=== PATIENT | female | born 1965 | race Asian ===

== ENCOUNTER 2024-05-10 11:09 | Inpatient (IN) | payer MEDICARE, OTHER ==
[~2024-05-10] VITALS: Ht 160 cm; Wt 57.2 kg
[2024-05-10 11:40] LABS: *BILIRUBIN,URIN NEGATIVE (NEGATIVE); *CLARITY,URINE CLEAR (CLEAR); *COLOR,URINE YELLOW (YELLOW); *KETONES,URINE NEGATIVE (NEGATIVE); *PROTEIN,URINE 2+ (NEGATIVE); *UROBILINOGEN,URINE 0.2 E.U./dl (NORMAL); LEUKOCYTE ESTERASE ,URINE 3+ (NEGATIVE); NITRITE, URINE NEGATIVE (NEGATIVE); UGLUCOSE NEGATIVE (NEGATIVE)
[2024-05-10 11:41] LABS: *BLOOD, URINE TRACE (NEGATIVE)
[2024-05-10 11:45] LABS: BASOPHILS % (AUTO) 0.5 % (0.0-2.0); EOSINOPHILS # (AUTO) 0.1 K/uL (0.0-0.7); EOSINOPHILS % (AUTO) 1.5 % (0.0-7.0); LYMPHOCYTES # (AUTO) 1.4 K/uL (0.8-4.8); MEAN CORPUSCULAR HEMOGLOBIN 31.2 uug (24.7-32.8); MEAN CORPUSCULAR HGB CONC 33 g/dL (32.3-35.6); MEAN CORPUSCULAR VOLUME 93.6 fL (75.5-95.3); MONOCYTES # (AUTO) 0.6 K/uL (0.1-1.30); MONOCYTES % (AUTO) 7.1 % (0.0-11.0); NEUTROPHILS # (AUTO) 6.6 K/uL (1.8-8.9); NEUTROPHILS % (AUTO) 74.9 % (38.5-71.5); PLATELET COUNT (AUTO) 262 K/uL (179-408); RED BLOOD CELL COUNT(AUTO) 2.88 MIL/uL (3.63-4.92); RED CELL DISTRIBUTION WIDTH 12.5 % (12.3-17.7); WHITE BLOOD COUNT (AUTO) 8.8 K/uL (3.8-11.8)
[2024-05-10 11:50] LABS: *AMPHETAMINE, URINE NEGATIVE (NEGATIVE); *BARBITURATE, URINE NEGATIVE (NEGATIVE); *BENZODIAZEPINE, URINE NEGATIVE (NEGATIVE); *CANNABINOID, URINE NEGATIVE (NEGATIVE); *COCCAINE, URINE NEGATIVE (NEGATIVE); *OPIATE, URINE NEGATIVE (NEGATIVE); *PHENCYCLIDINE SCREEN,URINE NEGATIVE (NEGATIVE); FENTANYL, URINE NEGATIVE (NEGATIVE)
[2024-05-10 11:54] LABS: DIFFERENTIAL COMMENT 1
[2024-05-10 11:55] LABS: BACTERIA,URINE FEW /HPF (NONE SEEN); SQUAMOUS EPITHELIAL CELL,UR FEW /HPF (NONE SEEN); WBC,URINE 20-50 /HPF (0-3)
[2024-05-10 11:56] LABS: CALCIUM 11.6 mg/dL (8.5-10.1); CARBON DIOXIDE 25 mmol/L (21-32); CHLORIDE 103 mmol/L (98-107); CREATININE 4.1 mg/dL (0.6-1.3); GLUCOSE 101 mg/dL (74-106); POTASSIUM 4.5 mmol/L (3.5-5.1); SODIUM SERUM 137 mmol/L (136-145); UREA NITROGEN, BLOOD 39 mg/dL (7-18)
[2024-05-10 11:59] LABS: AMMONIA < 10 umol/L (11-32)
[2024-05-10 12:03] LABS: ETHANOL < 3 MG/DL (0-10)
[2024-05-10 12:04] LABS: ALANINE AMINOTRANSFERASE 9 U/L (14-59); ALBUMIN 3.6 g/dL (3.4-5.0); ALKALINE PHOSPHATASE 94 U/L (50-136); ASPARTATE AMINOTRANSFERASE 11 U/L (15-37); BILIRUBIN,DIRECT 0.1 mg/dL (0.0-0.2); BILIRUBIN,TOTAL 1.9 mg/dL (0.2-1.0); TOTAL PROTEIN, SERUM 7.7 g/dL (6.4-8.2)
[2024-05-10 12:07] LABS: ACETAMINOPHEN < 10.0 ug/mL (10-30)
[2024-05-10] MEDS ORDERED: ATOR10TA PO (13:42)
[2024-05-10] MEDS ORDERED: OXYB5TAB29 PO (13:42)
[2024-05-10] MEDS ORDERED: SITA50TA PO (13:42)
[2024-05-10] MEDS ORDERED: MIRT15TA3 PO (13:42)
[2024-05-10] MEDS ORDERED: VENL37.55 PO (13:42)
[2024-05-10] MEDS ORDERED: ACET-2605 PO (13:42)
[2024-05-10] MEDS ORDERED: ESCI5TAB PO (13:42)
[2024-05-10] MEDS ORDERED: ARIP10TA56 PO (13:42)
[2024-05-10] MEDS ORDERED: REMEDY ESSENTIAL ZINC PASTE 113 GM TP PRN (14:30)
[2024-05-10] MEDS ORDERED: MAGNESIUM HYDROXIDE 30 ML LIQUID UDC PO PRN (14:30)
[2024-05-10] MEDS ORDERED: HYDROCODONE/APAP 5-325MG TABLET PO PRN (14:30)
[2024-05-10] MEDS ORDERED: FERR-68 PO (15:16)
[2024-05-10] MEDS ORDERED: ALOG12.5 PO (15:16)
[2024-05-10] MEDS ORDERED: GLUC1KIT IJ (15:16)
[2024-05-10] MEDS ORDERED: OXYB5TAB16 PO (15:16)
[2024-05-10] MEDS ORDERED: THIA100T74 PO (15:16)
[2024-05-10] MEDS ORDERED: VENL37.510 PO (15:16)
[2024-05-10] MEDS ORDERED: ASCO500T85 PO (15:16)
[2024-05-10] MEDS ORDERED: MAGN400O6 PO (15:16)
[2024-05-10] MEDS ORDERED: FOLI1TAB94 PO (15:16)
[2024-05-10 15:45] VITALS: BP 134/69; TEMP 98.9; O2SAT 99
[2024-05-10] MEDS ORDERED: ARIP10TA9 PO (15:45)
[2024-05-10] MEDS: IV 1/2NS 1000 ML 1,000 ML IV PRN (16:55)
[2024-05-10] MEDS: CEFTRIAXONE 1 G in IV DEXTROSE 5% 50 ML IV SCH (16:55)
[2024-05-11 03:51] VITALS: BP 108/62; TEMP 98.4
[2024-05-11 06:17] LABS: BASOPHILS # (AUTO) 0.1 K/UL (0.0-0.2); BASOPHILS % (AUTO) 0.9 % (0.0-2.0); EOSINOPHILS # (AUTO) 0.2 K/uL (0.0-0.7); EOSINOPHILS % (AUTO) 3.6 % (0.0-7.0); HEMATOCRIT 27.7 % (31.2-41.9); HEMOGLOBIN 9.4 g/dL (10.9-14.3); LYMPHOCYTES # (AUTO) 1.2 K/uL (0.8-4.8); LYMPHOCYTES % (AUTO) 19.4 % (20.5-51.5); MEAN CORPUSCULAR HGB CONC 34 g/dL (32.3-35.6); MEAN CORPUSCULAR VOLUME 94.6 fL (75.5-95.3); MONOCYTES # (AUTO) 0.6 K/uL (0.1-1.30); MONOCYTES % (AUTO) 9.8 % (0.0-11.0); NEUTROPHILS # (AUTO) 4.2 K/uL (1.8-8.9); NEUTROPHILS % (AUTO) 66.3 % (38.5-71.5); PLATELET COUNT (AUTO) 230 K/uL (179-408); RED BLOOD CELL COUNT(AUTO) 2.93 MIL/uL (3.63-4.92); RED CELL DISTRIBUTION WIDTH 12.5 % (12.3-17.7); WHITE BLOOD COUNT (AUTO) 6.4 K/uL (3.8-11.8)
[2024-05-11 06:34] LABS: CALCIUM 11.1 mg/dL (8.5-10.1); CREATININE 3.8 mg/dL (0.6-1.3); MAGNESIUM 1.3 mg/dL (1.8-2.4); PHOSPHOROUS 3.4 mg/dL (2.5-4.9); POTASSIUM 4.7 mmol/L (3.5-5.1)
[2024-05-11 06:52] LABS: DIFFERENTIAL COMMENT 1
[2024-05-11] MEDS: PANTOPRAZOLE SODIUM 40 MG TABLET.DR PO SCH (06:59)
[2024-05-11 08:11] VITALS: BP 117/60; TEMP 97.9; O2SAT 94
[2024-05-11 11:37] LABS: THYROID STIMULATING HORMONE 0.164 mIU/mL (0.358-3.740)
[2024-05-11 11:58] VITALS: BP 119/54; TEMP 98
[2024-05-11] MEDS ORDERED: MIRT-121 PO (12:20)
[2024-05-11] MEDS ORDERED: MAGNESIUM HYDROXIDE 30 ML LIQUID UDC PO PRN (12:45)
[2024-05-11] MEDS: LINAGLIPTIN 5 MG TABLET PO SCH (15:22)
[2024-05-11] MEDS: FOLIC ACID 1 MG TABLET PO SCH (15:22)
[2024-05-11] MEDS: ESCITALOPRAM OXALATE 10 MG TABLET PO SCH (15:23)
[2024-05-11] MEDS: THIAMINE HCL 100 MG TABLET PO SCH (15:24)
[2024-05-11] MEDS: MAGNESIUM SULFATE/D5W 100 ML IV SCH (15:24)
[2024-05-11] MEDS: ASCORBIC ACID 500 MG TABLET PO SCH (15:24)
[2024-05-11 17:10] VITALS: BP 114/52; TEMP 98; O2SAT 100
[2024-05-11] MEDS: OXYBUTYNIN CHLORIDE 5 MG TABLET PO SCH (17:22)
[2024-05-11] MEDS: ACETAMINOPHEN 325 MG TABLET PO PRN (17:22)
[2024-05-11 20:00] VITALS: BP 109/64; TEMP 98.2; O2SAT 97
[2024-05-11] MEDS: ATORVASTATIN 10 MG TABLET PO SCH (20:27)
[2024-05-11] MEDS: ARIPIPRAZOLE 10 MG TABLET PO SCH (20:27)
[2024-05-11] MEDS: MIRTAZAPINE 15 MG TABLET PO SCH (20:27)
[2024-05-12 00:01] VITALS: BP 115/62; TEMP 97.6; O2SAT 97
[2024-05-12 05:45] VITALS: BP 110/51; TEMP 97.9; O2SAT 98
[2024-05-12 06:00] LABS: *BILIRUBIN,URIN NEGATIVE (NEGATIVE); *BLOOD, URINE NEGATIVE (NEGATIVE); *CLARITY,URINE CLEAR (CLEAR); *COLOR,URINE YELLOW (YELLOW); *KETONES,URINE NEGATIVE (NEGATIVE); *PROTEIN,URINE NEGATIVE (NEGATIVE); *UROBILINOGEN,URINE 0.2 E.U./dl (NORMAL); LEUKOCYTE ESTERASE ,URINE NEGATIVE (NEGATIVE); NITRITE, URINE NEGATIVE (NEGATIVE); PH,URINE 5.5 (5.0-8.0); UGLUCOSE NEGATIVE (NEGATIVE)
[2024-05-12 06:08] LABS: *URINE TOTAL PROTEIN RANDOM 16.6 mg/dL (<150/24HR)
[2024-05-12 06:33] LABS: BASOPHILS % (AUTO) 0.7 % (0.0-2.0); EOSINOPHILS # (AUTO) 0.2 K/uL (0.0-0.7); EOSINOPHILS % (AUTO) 3.5 % (0.0-7.0); HEMATOCRIT 28.5 % (31.2-41.9); HEMOGLOBIN 9.4 g/dL (10.9-14.3); LYMPHOCYTES # (AUTO) 1.5 K/uL (0.8-4.8); LYMPHOCYTES % (AUTO) 23.3 % (20.5-51.5); MEAN CORPUSCULAR HEMOGLOBIN 31.6 uug (24.7-32.8); MEAN CORPUSCULAR HGB CONC 33 g/dL (32.3-35.6); MEAN CORPUSCULAR VOLUME 95.7 fL (75.5-95.3); MONOCYTES # (AUTO) 0.5 K/uL (0.1-1.30); MONOCYTES % (AUTO) 8.2 % (0.0-11.0); NEUTROPHILS % (AUTO) 64.3 % (38.5-71.5); PLATELET COUNT (AUTO) 233 K/uL (179-408); RED BLOOD CELL COUNT(AUTO) 2.98 MIL/uL (3.63-4.92); RED CELL DISTRIBUTION WIDTH 12.6 % (12.3-17.7); WHITE BLOOD COUNT (AUTO) 6.3 K/uL (3.8-11.8)
[2024-05-12 06:53] LABS: BILIRUBIN,TOTAL 0.3 mg/dL (0.2-1.0); CALCIUM 10.5 mg/dL (8.5-10.1); CREATININE 3.7 mg/dL (0.6-1.3); MAGNESIUM 2.6 mg/dL (1.8-2.4); PHOSPHOROUS 3.4 mg/dL (2.5-4.9); POTASSIUM 4.2 mmol/L (3.5-5.1); TOTAL PROTEIN, SERUM 6.9 g/dL (6.4-8.2)
[2024-05-12 08:19] VITALS: BP 105/54; TEMP 98.7; O2SAT 97
[2024-05-12] MEDS: FERROUS SULFATE 325 MG TABEC PO SCH (08:27)
[2024-05-12] MEDS ORDERED: Medication Not On Formulary EA (Escitalopram Oxalate (Lexapro) 5 MG) PO SCH (09:00)
[2024-05-12] MEDS ORDERED: Medication Not On Formulary EA (Sitagliptin Phosphate (Januvia) 50 MG) PO SCH (09:00)
[2024-05-12] MEDS ORDERED: ALOGLIPTIN BENZOATE 6.25 MG PO SCH (09:00)
[2024-05-12 12:00] VITALS: BP 115/72; TEMP 97.7; O2SAT 97
[2024-05-12 16:39] VITALS: BP 113/59; TEMP 97.9; O2SAT 96
[2024-05-12 20:08] VITALS: BP 115/79; TEMP 98.4; O2SAT 96
[2024-05-13 05:45] VITALS: BP 127/60; TEMP 97.5; O2SAT 97
[2024-05-13 06:56] LABS: BASOPHILS % (AUTO) 0.6 % (0.0-2.0); EOSINOPHILS # (AUTO) 0.2 K/uL (0.0-0.7); EOSINOPHILS % (AUTO) 3.8 % (0.0-7.0); HEMATOCRIT 30.3 % (31.2-41.9); LYMPHOCYTES # (AUTO) 1.4 K/uL (0.8-4.8); MEAN CORPUSCULAR HEMOGLOBIN 31.2 uug (24.7-32.8); MEAN CORPUSCULAR HGB CONC 33 g/dL (32.3-35.6); MEAN CORPUSCULAR VOLUME 94.2 fL (75.5-95.3); MONOCYTES # (AUTO) 0.4 K/uL (0.1-1.30); MONOCYTES % (AUTO) 7.2 % (0.0-11.0); NEUTROPHILS # (AUTO) 3.3 K/uL (1.8-8.9); NEUTROPHILS % (AUTO) 62.4 % (38.5-71.5); PLATELET COUNT (AUTO) 229 K/uL (179-408); RED BLOOD CELL COUNT(AUTO) 3.22 MIL/uL (3.63-4.92); RED CELL DISTRIBUTION WIDTH 12.4 % (12.3-17.7); WHITE BLOOD COUNT (AUTO) 5.3 K/uL (3.8-11.8)
[2024-05-13 07:10] LABS: DIFFERENTIAL COMMENT 1
[2024-05-13 07:49] LABS: CALCIUM 10.9 mg/dL (8.5-10.1); CREATININE 3.5 mg/dL (0.6-1.3); MAGNESIUM 1.9 mg/dL (1.8-2.4); PHOSPHOROUS 4.2 mg/dL (2.5-4.9); POTASSIUM 4.1 mmol/L (3.5-5.1)
[2024-05-13 08:11] LABS: PTH, INTACT 160 pg/mL (15-65)
[2024-05-13 11:50] VITALS: BP 121/60; TEMP 98.1; O2SAT 99
[2024-05-13 15:48] VITALS: BP 127/60; TEMP 98.2; O2SAT 94
[2024-05-14] MEDS ORDERED: NEPRO (VANILLA) 237 ML CAN PO SCH (09:00)
== END 2024-05-13 16:30 | DRG 689 ==
LOC: ER 11:09 → MEDSURG3 15:13 → TELE3 17:00 → MEDSURG3 05-12 10:00
PROC: 05HC33Z Insertion of Infusion Device into Left Basilic Vein, Percutaneous Approach (ICD-10-PCS; principal; 2024-05-10)
DX: N39.0 Urinary tract infection, site not specified (principal); G92.8 Other toxic encephalopathy; N18.6 End stage renal disease; N17.9 Acute kidney failure, unspecified; E11.22 Type 2 diabetes mellitus with diabetic chronic kidney disease; Z99.2 Dependence on renal dialysis; Z79.84 Long term (current) use of oral hypoglycemic drugs; E11.42 Type 2 diabetes mellitus with diabetic polyneuropathy; E83.52 Hypercalcemia; E78.5 Hyperlipidemia, unspecified; D64.9 Anemia, unspecified; G93.9 Disorder of brain, unspecified; E86.0 Dehydration; F31.9 Bipolar disorder, unspecified; F20.9 Schizophrenia, unspecified; I45.10 Unspecified right bundle-branch block; J44.9 Chronic obstructive pulmonary disease, unspecified; N32.81 Overactive bladder; Z91.158 Patient's noncompliance with renal dialysis for other reason; Z88.0 Allergy status to penicillin; I70.0 Atherosclerosis of aorta; I51.7 Cardiomegaly; Z66 Do not resuscitate; G47.33 Obstructive sleep apnea (adult) (pediatric)
CPT/HCPCS: 36415; 70450; 70551; 71045; 76770; 83605; 83735; 83921; 83970; 84100; 84155; 84165; 84300; 84443; 84484; 85025; 85730; 87040; A4606; A4663; G0378; G0480; J0696; J3475